=== PATIENT | male | born 2000 | race Caucasian/White ===

== ENCOUNTER 2020-07-24 12:13 | Emergency (ER) | payer SELFPAY ==
[2020-07-24 12:15] VITALS: BP 159/104; PULSE 89; RESP 16; TEMP 36.6; O2SAT 99; BMI 36.1
--- NOTE | 2020-07-24 13:24 | EX.ED.UPPERE ---
HPI History of Present Illness Chief Complaint: Upper Extremity Injury Narrative Narrative: 20-year-old male presenting with right shoulder pain. He states this is a chronic issue since injuring it about a year ago at work. Patient states that it does tend to come and go. He denies any new injury. He complains of pain in the right trapezius which feels like a muscle spasm. 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 PFSH PFSH no medical history Home Medications cyclobenzaprine 10 mg PO TID PRN #20 tablet 07/24/20 [Rx Last Taken Unknown] naproxen [Naprosyn] 500 mg PO BID #30 tab 07/24/20 [Rx Last Taken Unknown] Allergy/AdvReac Type Severity Reaction Status Date / Time No Known Allergies Allergy Verified 07/24/20 12:15 ROS ROS ED Constitutional Constitutional ED: Denies chills, fever(s) or sweats Eyes Eyes: Denies blurry vision or change in vision ENT ENT ED: Denies ear pain, rhinorrhea or sore throat Cardiovascular Cardiovascular: Denies chest pain, palpitations or racing heartbeat Respiratory/Chest Respiratory/Chest: Denies cough, dyspnea or sputum Gastrointestinal Gastrointestinal: Denies abdominal pain, constipation, diarrhea or vomiting Genitourinary Genitourinary ED: Denies dysuria, hematuria or urinary frequency Musculoskeletal Musculoskeletal: Reports myalgias and other Details: Right trapezius pain ; Denies arthralgias or neck pain Integumentary Denies abscess, Abrasions or rash Neurologic Neurologic: Denies headache(s), paresthesias or weakness Psychiatric Psychiatric: Denies anxiety, depression, suicidal ideation or suicidal thoughts Endocrine Endocrinology: Denies polydipsia or polyuria EXAM Physical Exam Const Vital Signs: 07/24/20 12:15 Temperature 98 F Temperature Source Temporal Pulse Rate 89 Respiratory Rate 16 Blood Pressure 159/104 H Blood Pressure Mean 122 Pulse Ox 99 Oxygen Delivery Method Room Air Positive well nourished General Appearance ED: NAD; Negative for pallor HEENT Reports normocephalic, head/scalp atraumatic and moist mucous membranes normocephalic Eyes PERRL and EOMs intact bilaterally Neck full ROM, no lymphadenopathy and supple General: Negative for tenderness Chest Wall inspection of chest normal and palpation of chest normal Resp normal respiratory effort and clear to auscultation bilaterally Auscultation: Negative for rales, rhonchi or wheezes Cardio regular rate and regular rhythm GI normal to inspection, nondistended, normoactive bowel sounds Narrative: Deferred Back/Spine General Back: CVA tenderness Cervical Spine: Negative for cervical spine tenderness Thoracic Spine / Upper Back: Negative for thoracic spinal tenderness Extremity normal to inspection General Extremety ED: Yes tenderness Left Upper Extremity: shoulder joint Shoulder Joint Exam - Left: ROM, other (Right shoulder has full range of motion in flexion, extension, abduction. There is no tenderness to palpation over the shoulder joint. There is tenderness in the right trapezius and medial scapular region.) and special tests Neuro oriented x3 and CN's II-XII intact bilaterally Sensorium / Orientation: alert Motor Exam: strength 5/5 throughout Psych mental status grossly normal Attitude: No agitated Skin no rashes or lesions noted and no wounds General Skin Exam: Negative for jaundice or pallor Lesions: no lesions Rashes: no rashes MDM MDM MDM Narrative Medical decision making narrative: Patient presents with right trapezius pain. His right shoulder examination is normal. There is normal strength and sensation throughout the right upper extremity, forearm, hand. I believe patient has a muscle strain patient will be started on cyclobenzaprine and Naprosyn for home. He was given referral to orthopedics if shoulder is not improving. I do not believe he warrants imaging at this time. Patient stable for discharge at this time. Impression: 1. Trapezius strain Discharge Plan Triage Chief Complaint: Upper Extremity Injury ED Provider: Chadwick Woodson Dx/Rx/DC Orders Instructions: ED Shoulder Sprain Prescriptions: New naproxen [Naprosyn] 500 mg tablet 500 mg PO BID Qty: 30 RF: 0 cyclobenzaprine 10 mg tablet 10 mg PO TID PRN (Reason: Muscle Spasm) Qty: 20 RF: 0 Primary Care Provider: Care Physician,No Primary Referrals: Cornell English DO [STAFF PHYSICIAN] - As Needed Care Physician,No Primary [Primary Care Provider] - Disposition Disposition: Home, self care
[2020-07-24] MEDS: cycloBENZAPRine HCl 10 MG Tablet PO (13:27)
[2020-07-24] MEDS: Naproxen 500 MG Tablet PO (13:27)
== END 2020-07-24 13:33 | disposition home or self-care (01) ==
PROVIDERS: Emergency Provider Student in an Organized Health Care Education/Training Program
DX: S29.012A Strain of muscle and tendon of back wall of thorax, initial encounter (principal); X58.XXXA Exposure to other specified factors, initial encounter; Y93.89 Activity, other specified; Y92.89 Other specified places as the place of occurrence of the external cause; Y99.8 Other external cause status
CPT/HCPCS: 99283